=== PATIENT | male | born 1975 | race Caucasian/White ===

== ENCOUNTER 2016-10-11 18:35 | Emergency (ER) | payer OTHER ==
[2016-10-11 19:33] VITALS: BP 139/83
[2016-10-11] MEDS ORDERED: Sulfamethox/Trimethoprim DS 800/160* TAB PO ONE (19:41)
--- NOTE | 2016-10-11 19:49 | UC ---
HPI Wound/Suture Re-check - HPI Summary HPI Summary: Pt is here with concern for possible wound infection. Pt reports that he "cut his leg" ~ 1 week ago on a metal bicycle pedal. Pt is UTD with tetanus. Pt reports that the wound has been getting slightly more tender and mild erythema surrounding wound. Denies fever or chills, or purulent discharge - History Of Current Complaint Chief Complaint: UCSkin Stated Complaint: INFECTED WOUND Time Seen by Provider: 10/11/16 19:29 Hx Obtained From: Patient Onset/Duration: Gradual Onset, Lasting Days, Still Present Severity: Mild - Allergies/Home Medications Allergies/Adverse Reactions: Allergies Allergy/AdvReac Type Severity Reaction Status Date / Time Cephalexin Allergy Hives Verified 10/11/16 19:33 PMH/Surg Hx/FS Hx/Imm Hx Previously Healthy: Yes - Surgical History Surgical History: Yes Surgery Procedure, Year, and Place: EAR TUBES A CHILD,WISDOM TEETH; EYE-PRK PROCEDURE (LASER); vasectomy - Family History Known Family History: Positive: Hypertension - Social History Lives: With Family Alcohol Use: Occasionally Substance Use Type: None Smoking Status (MU): Former Smoker Have You Smoked in the Last Year: No When Did the Patient Quit Smoking/Using Tobacco: 10 yrs+ - Immunization History Most Recent Tetanus Shot: summer 2014 Review of Systems Constitutional: Negative Skin: Other - healing wound, increased erythema, tenderness, posterior left calf Eyes: Negative ENT: Negative Respiratory: Negative Cardiovascular: Negative Gastrointestinal: Negative Genitourinary: Negative Motor: Negative Neurovascular: Negative Musculoskeletal: Negative Neurological: Negative Psychological: Negative All Other Systems Reviewed And Are Negative: Yes Physical Exam Triage Information Reviewed: Yes Appearance: Well-Appearing Vital Signs: Initial Vital Signs Temp 98.2 F 10/11/16 19:29 Pulse 71 10/11/16 19:29 Resp 16 10/11/16 19:29 BP 139/83 10/11/16 19:29 Pulse Ox 100 10/11/16 19:29 Vital Signs Reviewed: Yes Eye Exam: Normal ENT Exam: Normal Neck exam: Normal Respiratory Exam: Normal Cardiovascular Exam: Normal Musculoskeletal Exam: Normal Neurological Exam: Normal Psychological Exam: Normal Skin Exam: Other - healing laceration left medial posterior left calf, ~ 5 cm in length, with mild erythema encompassing wound. Course/Dx - Differential Dx - Laceration/Wound Differential Diagnoses: Cellulitis, Healing Wound Provider Diagnoses: healing wounding. cellulitis Discharge - Discharge Plan Condition: Stable Disposition: HOME Prescriptions: Sulfamethox/Trimethoprim DS* [Bactrim DS 800/160 TAB*] 1 tab PO Q12H #14 tab Patient Education Materials: Wound Infection (ED), Cellulitis (ED) Referrals: Mark Anthony Ontiveros MD [Primary Care Provider] -
== END 2016-10-11 19:50 | disposition home or self-care (01) ==
LOC: UCCORT 18:35
DX: L03.116 Cellulitis of left lower limb (principal); Z88.3 Allergy status to other anti-infective agents; Z87.891 Personal history of nicotine dependence
CPT/HCPCS: 99212; A9270-GY; G0463

== ENCOUNTER 2017-03-31 13:09 | Emergency (ER) | payer OTHER ==
--- OUTSIDE RECORDS SUMMARY | 2017-03-31 16:07 | XMS REPORT ---
:1975 External Reference #:[id number] Author Organization [facility] Address [address] [place] [address] Phone [phone] Care Team Providers Name Role Phone Mark Anthony Ontiveros M.D. Primary Care Physician Unavailable Payers Type Date Identification Numbers Payment Provider Subscriber Commercial Effective: Policy Number: [id number] [facility] Loc 2012 Group Number: [id number] [address] Group Name: [place] [address] PayID: [id number] Problems Date Description Provider Status Onset: 02/28/2016 Body mass index 25-29 - overweight Levi Jones M.D. Active Onset: 12/06/2014 Mild persistent asthma SIM Sampson Active Onset: 08/28/2013 Allergic rhinitis Levi Jones M.D. 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 Active asthmaticus Onset: 01/16/2013 Allergic rhinitis due to pollen Levi Jones M.D. Active Onset: 11/09/2014 Allergic rhinitis due to pollen Allergy Injection Active Onset: 11/09/2014 Allergic rhinitis Allergy Injection Active Onset: 11/09/2014 Allergic rhinitis Allergy Injection Active Onset: 11/09/2014 Allergic rhinitis due to animals Allergy Injection Active Family History Date Family Member(s) Problem(s) Comments General Heart Disease maternal and paternal grandparents General Hypertension maternal and paternal grandparents General Thyroid Disease maternal grandmother Social History Type Date Description Comments Marital Status Legal Status: Lives With Daughters Lives With Spouse Home Environment 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 Home Environment Has a window air conditioner Home Environment Stairs are present Home Environment Unfinished Basement Home Environment The basement is dry Home Environment Cotton 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 Home Environment Mattress is 1 year old Home Environment Regular Mattress Home Environment Mattress is not encased in an allergy proof case Home Environment Pillows are polyester Home Environment Pillows are not encased in an allergy proof case Home Environment Does not use a dehumidifier Home Environment There are no draperies in the home Home Environment The home is jaron Home Environment The floors are carpeted Home Environment The floors are tile Home Environment The floors are wood Home Environment Uses wood heating Home Environment [place] Home Environment Water Source: Well Smoke-Free Home is smoke-free Smoke-Free Work is smoke-free Pets 1 dog Pets Animals sleep in bedroom Occupation [place] ETOH Use Occasionally consumes alcohol Smoking Patient is a former smoker 1 pack per wk for 2-3 yrs 15 yrs ago Recreational Drug Use Denies Drug Use Allergies, Adverse Reactions, Alerts Date Description Reaction Status Severity Comments 01/16/2013 Keflex stomach cramps active 01/16/2013 Indocin stomach cramps active 08/22/2015 Cephalexin active Hives 08/28/2016 Ciprofloxacin active elevated liver bloodwork 08/28/2016 Metronidazole active elevated liver bloodwork Medications Medication Date Status Form Strength Qnty SIG Indications Ordering Provider Flovent HFA 02/14/ Active Aerosol 220mcg/Act 12gm two puffs Joycelyn 2016 twice Uldrich, daily, [employer] rinse mouth after Chela 02/27/ Active Tablets 180mg 30tabs 1 po qd J45.30 Levi Allergy 2013 Yani Jones Ventolin HFA / Active Aerosol 108(90Base 1units 2 puffs Joycelyn 0000 ) mcg/Act q4-6 hours Uldrich, as needed [employer] for shortness of breath, cough, wheezing and/or 15 min. prior to exercise Mometasone / Active Suspension 50mcg/Act 1units 1-2 sprays Joycelyn Furoate 0000 into each Uldrich, nostril [employer] once a day Medications Administered in Office Medication Date Status Form Strength Qnty SIG Indications Ordering Provider Injection 03/01/19 Administered Injection Allergy 18 Injection Injection 02/26/19 Administered Injection Allergy 18 Injection Injection 02/19/19 Administered Injection Allergy 18 Injection Injection 01/23/20 Administered Injection Levi Jones, 17 M.D. Injection 01/23/20 Administered Injection Allergy 17 Injection Injection 12/31/19 Administered Injection Allergy 17 Injection Injection 12/19/19 Administered Injection Levi Jones, 17 M.D. Injection 12/19/19 Administered Injection Allergy 17 Injection Injection 12/05/19 Administered Injection Allergy 17 Injection Injection 11/21/19 Administered Injection Allergy 17 Injection Injection 10/24/19 Administered Injection Levi Jones, 17 M.D. Injection 10/24/19 Administered Injection Allergy 17 Injection Injection 10/10/19 Administered Injection Allergy 17 Injection Injection 09/26/19 Administered Injection Allergy 17 Injection Injection 09/19/19 Administered Injection Allergy 17 Injection Injection 08/29/19 Administered Injection Allergy 17 Injection Injection 08/20/19 Administered Injection Allergy 17 Injection Injection 08/05/19 Administered Injection Allergy 17 Injection Injection 07/25/19 Administered Injection Allergy 17 Injection Injection 07/11/19 Administered Injection Allergy 17 Injection Injection 06/27/19 Administered Injection Levi Jones, 17 M.D. Injection 06/27/19 Administered Injection Allergy 17 Injection Injection 06/09/19 Administered Injection Allergy 17 Injection Injection 06/02/19 Administered Injection Allergy 17 Injection Injection 05/09/19 Administered Injection Allergy 17 Injection Injection 04/25/19 Administered Injection Allergy 17 Injection Injection 04/11/19 Administered Injection Allergy 17 Injection Injection 03/27/19 Administered Injection Allergy 17 Injection Injection 02/27/19 Administered Injection Allergy 17 Injection Injection 02/20/19 Administered Injection Allergy 17 Injection Injection 01/29/20 Administered Injection Allergy 16 Injection Injection 01/22/20 Administered Injection Allergy 16 Injection Injection 01/08/20 Administered Injection Allergy 16 Injection Injection 12/25/19 Administered Injection Allergy 16 Injection Injection 12/11/19 Administered Injection Allergy 16 Injection Injection 11/27/19 Administered Injection Allergy 16 Injection Injection 11/13/19 Administered Injection Allergy 16 Injection Injection 11/01/19 Administered Injection Allergy 16 Injection Injection 10/17/19 Administered Injection Allergy 16 Injection Injection 10/04/19 Administered Injection Allergy 16 Injection Injection 09/20/19 Administered Injection Allergy 16 Injection Injection 09/12/19 Administered Injection Allergy 16 Injection Injection 08/29/19 Administered Injection Allergy 16 Injection Injection 08/22/19 Administered Injection Allergy 16 Injection Injection 08/09/19 Administered Injection Allergy 16 Injection Injection 07/26/19 Administered Injection Allergy 16 Injection Injection 07/12/19 Administered Injection Allergy 16 Injection Injection 06/28/19 Administered Injection Allergy 16 Injection Injection 05 Administered Injection Allergy 16 Injection Injection 05/31/19 Administered Injection Allergy 16 Injection Injection 05/17/19 Administered Injection Allergy 16 Injection Injection 04/26/19 Administered Injection Allergy 16 Injection Injection 04/12/19 Administered Injection Allergy 16 Injection Injection 03/20/19 Administered Injection Allergy 16 Injection Injection 03/06/19 Administered Injection Allergy 16 Injection Injection 02/20/19 Administered Injection Allergy 16 Injection Injection 02/06/20 Administered Injection Allergy 15 Injection Injection 01/24/20 Administered Injection Allergy 15 Injection Injection 01/08/20 Administered Injection Allergy 15 Injection Injection 12/20/19 Administered Injection Allergy 15 Injection Injection 12/07/19 Administered Injection Allergy 15 Injection Injection 11/22/19 Administered Injection Allergy 15 Injection Injection 11/10/19 Administered Injection Allergy 15 Injection Injection 10/25/19 Administered Injection Allergy 15 Injection Injection 10/18/19 Administered Injection Allergy 15 Injection Injection 10/04/19 Administered Injection Allergy 15 Injection Injection 09/20/19 Administered Injection Allergy 15 Injection Injection 09/06/19 Administered Injection Allergy 15 Injection Injection 08/25/19 Administered Injection Allergy 15 Injection Injection 08/16/19 Administered Injection Allergy 15 Injection Injection 08/02/19 Administered Injection Allergy 15 Injection Injection 07/19/19 Administered Injection Allergy 15 Injection Injection 07/05/19 Administered Injection Allergy 15 Injection Injection 06/21/19 Administered Injection Allergy 15 Injection Injection 06/07/19 Administered Injection Allergy 15 Injection Injection 05/24/19 Administered Injection Allergy 15 Injection Injection 05/10/19 Administered Injection Allergy 15 Injection Injection 04/26/19 Administered Injection Allergy 15 Injection Injection 04/12/19 Administered Injection Allergy 15 Injection Injection 03/28/19 Administered Injection Allergy 15 Injection Injection 03/14/19 Administered Injection Allergy 15 Injection Injection 03/02/19 Administered Injection Allergy 15 Injection Injection 02/21/19 Administered Injection Allergy 15 Injection Injection 02/12/19 Administered Injection Allergy 15 Injection Injection 01/30/20 Administered Injection Allergy 14 Injection Injection 01/25/20 Administered Injection Allergy 14 Injection Injection 01/20/20 Administered Injection Allergy 14 Injection Injection 01/11/20 Administered Injection Allergy 14 Injection Injection 11/26/20 Administered Injection Allergy 14 Injection Injection 12/27/20 Administered Injection Allergy 14 Injection Injection 11//20 Administered Injection Allergy 14 Injection Injection 11/05/20 Administered Injection Allergy 14 Injection Injection 12/06/20 Administered Injection Allergy 14 Injection Injection 11/29/20 Administered Injection Allergy 14 Injection Injection 10/15/20 Administered Injection Allergy 14 Injection Injection //20 Administered Injection Allergy 14 Injection Injection 11/06/20 Administered Injection Allergy 14 Injection Injection 10/30/20 Administered Injection Allergy 14 Injection Injection //20 Administered Injection Allergy 14 Injection Injection //20 Administered Injection Allergy 14 Injection Injection 10/06/20 Administered Injection Allergy 14 Injection Injection 10/02/20 Administered Injection Allergy 14 Injection Injection 09/25/20 Administered Injection Allergy 14 Injection Injection 20 Administered Injection Allergy 14 Injection Injection 08//20 Administered Injection Allergy 14 Injection Injection 09/04/20 Administered Injection Allergy 14 Injection Injection 07/20 Administered Injection Allergy 14 Injection Injection 07/20 Administered Injection Allergy 14 Injection Injection 07//20 Administered Injection Allergy 14 Injection Injection 0630/20 Administered Injection Allergy 14 Injection Injection 06/20 Administered Injection Allergy 14 Injection Injection 06/16/20 Administered Injection Allergy 14 Injection Injection 06//20 Administered Injection Allergy 14 Injection Injection 06/02/20 Administered Injection Allergy 14 Injection Injection 05/20 Administered Injection Allergy 14 Injection Injection 05/19/20 Administered Injection Allergy 14 Injection Injection 05/12/20 Administered Injection Allergy 14 Injection Injection 05/05/20 Administered Injection Allergy 14 Injection Injection 0428/20 Administered Injection Allergy 14 Injection Immunizations CPT Code Status Date Vaccine Lot # [id number] Given 11/08/2013 Influenza Vaccine 12839 Given Unknown Pneumococcal Vaccine 93504 Given Unknown Influenza Vaccine 78297 Given Unknown Influenza Vaccine 75999 Given Unknown Influenza Vaccine 53998 Given Unknown Influenza Vaccine Vital Signs Date Vital Result Comment 03/01/2017 Height 74 inches 6'2" Weight 210.00 lb Weight in kg's 95.256 Respiratory Rate 20 /min Heart Rate 73 /min O2 % BldC Oximetry 97 % BP Systolic 136 mmHg BP Diastolic 87 mmHg Asthma Control Test 18 BMI (Body Mass Index) 27.0 kg/m2 08/28/2016 Height 74 inches 6'2" Weight 207.00 lb Weight in kg's 93.895 Respiratory Rate 16 /min Heart Rate 69 /min O2 % BldC Oximetry 97 % BP Systolic 124 mmHg BP Diastolic 85 mmHg Asthma Control Test 22 BMI (Body Mass Index) 26.6 kg/m2 02/28/2016 Height 74 inches 6'2" Weight 230.00 lb Pt verbalized Weight in kg's 104.328 Respiratory Rate 20 /min Heart Rate 85 /min O2 % BldC Oximetry 98 % BP Systolic 123 mmHg BP Diastolic 86 mmHg Asthma Control Test 24 BMI (Body Mass Index) 29.5 kg/m2 08/22/2015 Height 74 inches 6'2" Weight 226.00 lb Weight in kg's 102.514 Respiratory Rate 18 /min Heart Rate 83 /min O2 % BldC Oximetry 98 % BP Systolic 127 mmHg BP Diastolic 79 mmHg Asthma Control Test 24 BMI (Body Mass Index) 29.0 kg/m2 12/06/2014 Height 74 inches 6'2" Weight 227.00 lb Weight in kg's 102.967 Respiratory Rate 16 /min Heart Rate 92 /min O2 % BldC Oximetry 98 % BP Systolic 123 mmHg BP Diastolic 88 mmHg Asthma Control Test 21 BMI (Body Mass Index) 29.1 kg/m2 06/13/2014 Height 74 inches 6'2" Weight 238.00 lb Weight in kg's 107.957 Respiratory Rate 16 /min Heart Rate 79 /min O2 % BldC Oximetry 98 % BP Systolic 140 mmHg BP Diastolic 98 mmHg Asthma Control Test 25 BMI (Body Mass Index) 30.6 kg/m2 12/13/2013 Height 73 inches 6'1" Weight 235.00 lb Weight in kg's 106.596 Respiratory Rate 16 /min Heart Rate 71 /min O2 % BldC Oximetry 98 % BP Systolic 125 mmHg BP Diastolic 80 mmHg Asthma Control Test 25 BMI (Body Mass Index) 31.0 kg/m2 08/28/2013 Height 74 inches 6'2" Weight 234.00 lb Weight in kg's 106.142 Respiratory Rate 16 /min Heart Rate 81 /min O2 % BldC Oximetry 98 % BP Systolic 138 mmHg BP Diastolic 85 mmHg Asthma Control Test 22 BMI (Body Mass Index) 30.0 kg/m2 05/29/2013 Height 74 inches 6'2" Weight 228.00 lb Weight in kg's 103.421 Respiratory Rate 16 /min Heart Rate 86 /min O2 % BldC Oximetry 98 % BP Systolic 138 mmHg BP Diastolic 78 mmHg Asthma Control Test 22 BMI (Body Mass Index) 29.3 kg/m2 02/27/2013 Height 74 inches 6'2" Weight 228.00 lb Weight in kg's 103.421 Respiratory Rate 16 /min Heart Rate 84 /min O2 % BldC Oximetry 98 % BP Systolic 112 mmHg BP Diastolic 68 mmHg BMI (Body Mass Index) 29.3 kg/m2 02/13/2013 Height 74 inches 6'2" Weight 228.00 lb Weight in kg's 103.421 Respiratory Rate 16 /min Heart Rate 72 /min O2 % BldC Oximetry 99 % BP Systolic 132 mmHg BP Diastolic 88 mmHg Asthma Control Test 24 BMI (Body Mass Index) 29.3 kg/m2 01/16/2013 Height 74 inches 6'2" Weight 228.00 lb Weight in kg's 103.421 Respiratory Rate 14 /min Heart Rate 86 /min O2 % BldC Oximetry 98 % BP Systolic 128 mmHg BP Diastolic 74 mmHg BMI (Body Mass Index) 29.3 kg/m2 Results Description No Information Procedures Date CPT Code Description Status 03/01/2017 88012 Extract 1-10 Completed 03/01/2017 13524 Injection Completed 03/01/2017 89013 Pre PFT Completed 02/26/2017 71290 Injection Completed 02/19/2017 70288 Injection Completed 01/22/2017 59195 Injection Completed 01/22/2017 26614 Injection Completed 12/30/2016 93782 Injection Completed 12/18/2016 52563 Injection Completed 12/18/2016 35306 Injection Completed 12/04/2016 98918 Injection Completed 11/20/2016 06127 Injection Completed 10/23/2016 21511 Injection Completed 10/23/2016 58069 Injection Completed 10/09/2016 46518 Injection Completed 09/25/2016 23672 Extract 1-10 Completed 09/25/2016 64779 Injection Completed 09/18/2016 38676 Injection Completed 08/28/2016 54418 Pre PFT Completed 08/28/2016 64657 Pre PFT Completed 08/28/2016 56267 Injection Completed 08/19/2016 23357 Injection Completed 08/04/2016 13741 Injection Completed 07/24/2016 32338 Injection Completed 07/10/2016 61584 Injection Completed 06/26/2016 86510 Injection Completed 06/26/2016 22156 Injection Completed 06/08/2016 17783 Injection Completed 06/01/2016 74528 Injection Completed 05/08/2016 80289 Extract 1-10 Completed 05/08/2016 32481 Injection Completed 04/24/2016 64622 Injection Completed 04/10/2016 87554 Injection Completed 03/27/2016 78931 Injection Completed 02/28/2016 76610 Injection Completed 02/28/2016 93900 Pre PFT Completed 02/21/2016 44267 Injection Completed 01/29/2016 32819 Injection Completed 01/22/2016 73659 Injection Completed 01/08/2016 82783 Injection Completed 12/25/2015 47962 Injection Completed 12/11/2015 72086 Extract 1-10 Completed 12/11/2015 50319 Injection Completed 11/27/2015 99035 Injection Completed 11/13/2015 40641 Injection Completed 11/01/2015 01287 Injection Completed 10/17/2015 57012 Injection Completed 10/04/2015 38835 Injection Completed 09/20/2015 20155 Injection Completed 09/12/2015 67764 Injection Completed 08/29/2015 17916 Injection Completed 08/22/2015 01171 Injection Completed 08/22/2015 60291 Pre PFT Completed 08/09/2015 40598 Injection Completed 08/09/2015 32349 Extract 1-10 Completed 07/26/2015 27942 Injection Completed 07/12/2015 69133 Injection Completed 06/28/2015 46950 Injection Completed 06/14/2015 81249 Injection Completed 05/31/2015 29054 Injection Completed 05/17/2015 32775 Injection Completed 04/26/2015 84165 Injection Completed 04/12/2015 71999 Injection Completed 03/20/2015 04812 Injection Completed 03/06/2015 75687 Extract 1-10 Completed 03/06/2015 07102 Injection Completed 02/20/2015 15868 Injection Completed 02/05/2015 44600 Injection Completed 01/23/2015 01617 Injection Completed 01/07/2015 52955 Injection Completed 12/19/2014 42303 Injection Completed 12/06/2014 85436 Injection Completed 12/06/2014 22118 Pre PFT Completed 11/21/2014 73310 Injection Completed 11/09/2014 25247 Injection Completed 10/24/2014 64782 Injection Completed 10/17/2014 92910 Extract 1-10 Completed 10/17/2014 89490 Injection Completed 10/03/2014 07564 Injection Completed 09/19/2014 14298 Injection Completed 09/05/2014 13832 Injection Completed 08/24/2014 91060 Injection Completed 08/15/2014 80880 Injection Completed 08/01/2014 51330 Injection Completed 07/18/2014 16055 Injection Completed 07/04/2014 50163 Injection Completed 06/20/2014 04219 Injection Completed 06/13/2014 17814 Pre PFT Completed 06/06/2014 89356 Extract 1-10 Completed 06/06/2014 68754 Injection Completed 05/23/2014 21442 Injection Completed 05/09/2014 19264 Injection Completed 04/25/2014 01049 Injection Completed 04/11/2014 69011 Injection Completed 03/28/2014 00657 Injection Completed 03/14/2014 77138 Injection Completed 03/02/2014 74326 Injection Completed 02/21/2014 46171 Injection Completed 02/12/2014 26465 Injection Completed 01/29/2014 18750 Injection Completed 01/29/2014 05136 Extract 1-10 Completed 01/24/2014 35904 Injection Completed 01/19/2014 32065 Injection Completed 01/10/2014 11534 Injection Completed 01/03/2014 86998 Injection Completed 12/27/2013 59459 Injection Completed 12/20/2013 94205 Injection Completed 12/13/2013 39802 Injection Completed 12/13/2013 94902 Pre PFT Completed 12/06/2013 83965 Injection Completed 11/29/2013 38607 Injection Completed 11/22/2013 10428 Extract 1-10 Completed 11/22/2013 37158 Injection Completed 11/15/2013 07890 Injection Completed 11/06/2013 83962 Injection Completed 10/30/2013 99976 Injection Completed 10/23/2013 07329 Injection Completed 10/16/2013 94442 Injection Completed 2013 40669 Injection Completed 10/02/2013 05969 Injection Completed 09/25/2013 96604 Injection Completed 09/18/2013 40298 Injection Completed 09/11/2013 52022 Injection Completed 09/04/2013 98967 Injection Completed 08/28/2013 61348 Injection Completed 08/28/2013 59215 Pre PFT Completed 08/21/2013 41049 Injection Completed 08/14/2013 05319 Injection Completed 08/14/2013 58590 Extract 1-10 Completed 08/07/2013 03886 Injection Completed 07/31/2013 90871 Injection Completed 07/24/2013 74652 Injection Completed 07/17/2013 15257 Injection Completed 07/10/2013 55282 Injection Completed 07/05/2013 10765 Injection Completed 06/26/2013 52985 Injection Completed 06/19/2013 94836 Injection Completed 06/12/2013 54033 Injection Completed 06/05/2013 25356 Injection Completed 06/01/2013 22987 Extract 1-10 Completed 02/27/2013 59538 Skin Tests Id Completed 02/27/2013 34500 Skin Tests Id Completed 02/27/2013 51842 Oxygen Level - Pulse Oximiter Completed 01/16/2013 58796 Skin Test Scratch # Of Units ____ Completed 01/16/2013 71993 Oxygen Level - Pulse Oximiter Completed 01/16/2013 66507 Pulmonary Function Test Completed Encounters Type Date Location Provider CPT E/M Dx Office Visit 03/01/2017 11:40a SIM Nieto 83647 J45.30 J30.1 J30.2 J30.81 J30.89 Office Visit 08/28/2016 11:40a SIM Nieto 38258 J45.30 J30.1 J30.2 J30.81 J30.89 Office Visit 02/28/2016 11:40a Libertad Jones M.D. 17092 J30.89 J45.30 Z68.29 Office Visit 08/22/2015 11:40a SIM Magaña 21748 J45.30 J30.1 J30.81 J30.89 J30.2 Z68.29 Office Visit 12/06/2014 1:40p SIM Magaña 80210 J45.30 J30.1 J30.81 J30.89 J30.2 Z68.29 Office Visit 06/13/2014 1:20p Libertad Ramos, PH.D, RAHAT 24384 477.0 477.8 493.00 V85.30 Office Visit 12/13/2013 1:20p Libertad Ny, MANUELC 75456 477.8 477.0 493.00 Office Visit 08/28/2013 8:40a Libertad Jones M.D. 17225 477.8 493.00 Office Visit 05/29/2013 8:40a Libertad Jones M.D. 86971 477.0 493.00 Office Visit 02/27/2013 11:40a Libertad Jones M.D. 29132 477.0 493.00 Office Visit 01/16/2013 1:20p Libertad Jones M.D. 58616 477.0 493.00 Plan of Care Future Appointment(s):08/30/2017 11:40 am - [facility] at [id number]/2017 12:00 pm - Allergy Injection at Bchbfc3803/01/2017 - ELE Donahue- CJ45.30 Mild persistent asthma, vmlxyrucpavzwX38.1 Allergic rhinitis due to acsbntB07.2 Other seasonal allergic hipfrjgrZ06.81 Allergic rhinitis due to animal (cat) (dog) hair and bmghmtW18.89 Other allergic rhinitisFollow up:6 months with pre PFTRecommendations:Continue all medications as prescribed.Refrain from wearing perfumes/scented colognes while visitingour office. Continue the Flovent 220 mcg 2 puffs twice a day Continue the Chela 1 daily Continue the Ventolin 2 puffs every 4 hours as needed cough, chest tightness, shortness of breath, or wheezing. Monitor Albuterol use. If using more than 2x/week, please call the office as your asthma medications may need to be adjusted. Please call if consistently using rescue inhaler > 2 times per week. Rinse your mouth with water after using your inhaler to help prevent hoarseness, throat irritation, and infection in the mouth.
[2017-03-31 16:19] VITALS: BP 133/74
--- NOTE | 2017-03-31 16:38 | UC ---
Respiratory Complaint HPI - HPI Summary HPI Summary: 41 yo male with about a 8 day hx of cough slight sore throat swollen cervical node fatigue fell winded with minimal expertion severe paroxysm of cough ? fever - History of Current Complaint Chief Complaint: UCRespiratory Stated Complaint: COUGH, CONGESTION Time Seen by Provider: 03/31/17 16:28 Hx Obtained From: Patient Onset/Duration: Sudden Onset, Lasting Days Timing: Constant Severity Initially: Mild Severity Currently: Moderate Pain Intensity: 2 Pain Scale Used: 0-10 Numeric Character: Cough: Nonproductive Aggravating Factors: Exertion Alleviating Factors: Nothing Associated Signs And Symptoms: Positive: Fever - ? - Allergies/Home Medications Allergies/Adverse Reactions: Allergies Allergy/AdvReac Type Severity Reaction Status Date / Time cephalexin [From Keflex] Allergy Hives Verified 03/31/17 16:23 indomethacin [From Indocin] Allergy Unknown Verified 03/31/17 16:23 Reaction Details sulfamethoxazole Allergy Hives Verified 03/31/17 16:23 [From Bactrim] trimethoprim [From Bactrim] Allergy Hives Verified 03/31/17 16:23 Home Medications: Home Medications Fexofenadine/Pseudoephedrine [Chela-D 24 Hour Tablet] 1 each PO DAILY [History Confirmed 03/31/17] PMH/Surg Hx/FS Hx/Imm Hx Previously Healthy: Yes Respiratory History: Asthma - Surgical History Surgical History: Yes Surgery Procedure, Year, and Place: EAR TUBES A CHILD,WISDOM TEETH; EYE-PRK PROCEDURE (LASER); vasectomy - Family History Known Family History: Positive: Hypertension - Social History Alcohol Use: Occasionally Substance Use Type: None Smoking Status (MU): Never Smoked Tobacco Have You Smoked in the Last Year: No When Did the Patient Quit Smoking/Using Tobacco: 10 yrs+ - Immunization History Most Recent Tetanus Shot: summer 2014 Review of Systems Constitutional: Fatigue Skin: Negative Eyes: Negative ENT: Negative Respiratory: Shortness Of Breath - with exertion, Cough Cardiovascular: Negative Gastrointestinal: Negative Genitourinary: Negative Motor: Negative Neurovascular: Negative Musculoskeletal: Negative Neurological: Negative Psychological: Negative Is Patient Immunocompromised?: No All Other Systems Reviewed And Are Negative: Yes Physical Exam Triage Information Reviewed: Yes Appearance: Well-Appearing, No Pain Distress, Well-Nourished Vital Signs: Initial Vital Signs Temp 98.8 F 03/31/17 16:14 Pulse 92 03/31/17 16:14 Resp 16 03/31/17 16:14 BP 133/74 03/31/17 16:14 Pulse Ox 100 03/31/17 16:14 Vital Signs Reviewed: Yes Eyes: Positive: Conjunctiva Clear ENT: Positive: Sinus tenderness. Negative: Nasal congestion, Nasal drainage Neck: Positive: Supple, Nontender, No Lymphadenopathy Respiratory: Positive: Lungs clear, Normal breath sounds, No respiratory distress Cardiovascular: Positive: RRR, No Murmur Musculoskeletal: Positive: ROM Intact, No Edema Neurological: Positive: Alert Psychological Exam: Normal Skin Exam: Normal UC Diagnostic Evaluation - Laboratory O2 Sat by Pulse Oximetry: 100 - normal/not hypoxic - Radiology Xray Interpretation: No Acute Changes Radiology Interpretation Completed By: Radiologist - EKG Cardiac Rate: NL Cardiac Rhythm: Sinus: Normal Ectopy: None ST Segment: Normal Respiratory Course/Dx - Differential Dx/Diagnosis Provider Diagnoses: acute bronchitis Discharge - Discharge Plan Condition: Stable Disposition: HOME Prescriptions: Amoxicillin PO (*) [Amoxicillin 875 MG (*)] 875 mg PO BID #14 tab predniSONE [Deltasone] 40 mg PO DAILY #10 tab Patient Education Materials: Acute Bronchitis (ED) Referrals: Mark Anthony Ontiveros MD [Primary Care Provider] - 5 Days (if not completely better) Additional Instructions: use your inhaler 2 puffs 4x day for 3-5 days
--- NOTE | 2017-03-31 17:04 | RAD ---
INDICATION: Cough COMPARISON: January 11, 2013 TECHNIQUE: PA and lateral dual-energy views were obtained. FINDINGS: Bones/Soft Tissues: There are no acute bony findings. Cardiomediastinal: The cardiomediastinal silhouette is normal. Lungs: There are no infiltrates. Pleura: There are no pleural effusions. Other: None IMPRESSION: NO ACTIVE DISEASE.
== END 2017-03-31 17:47 | disposition home or self-care (01) ==
LOC: UCCORT 13:09
DX: J20.9 Acute bronchitis, unspecified (principal); Z87.891 Personal history of nicotine dependence
CPT/HCPCS: 71046; 93005; 99212; G0463

== ENCOUNTER 2017-09-07 11:13 | Emergency (ER) | payer OTHER ==
[2017-09-07 11:53] VITALS: BP 123/80
--- NOTE | 2017-09-07 12:05 | UC ---
Throat Pain/Nasal Avery HPI - HPI Summary HPI Summary: fatigue x 4 days not feeling well, body aches, no energy had a sore throat 2 weeks ago no fever, no chills, no cough - History of Current Complaint Chief Complaint: UCGeneralIllness Stated Complaint: TIRED/WEAK *5 DAYS Time Seen by Provider: 09/07/17 11:41 Hx Obtained From: Patient Onset/Duration: Gradual Onset, Lasting Days - 4, Still Present Severity: Moderate Pain Intensity: 0 Cough: None Associated Signs & Symptoms: Negative: Dysphagia, FB Sensation, Drooling, Wheezing, Hoarseness, Sinus Discomfort, Nasal Discharge, Fever, Vomiting, Rash - Allergies/Home Medications Allergies/Adverse Reactions: Allergies Allergy/AdvReac Type Severity Reaction Status Date / Time cephalexin [From Keflex] Allergy Hives Verified 09/07/17 11:50 indomethacin [From Indocin] Allergy Eyes Verified 09/07/17 11:50 Itchy/Swollen/Red/Watery sulfamethoxazole Allergy Hives Verified 09/07/17 11:50 [From Bactrim] trimethoprim [From Bactrim] Allergy Hives Verified 09/07/17 11:50 Home Medications: Home Medications Acetaminophen [Tylenol Extra Strength] 1,000 mg PO ONCE PRN 09/07/17 [History Confirmed 09/07/17] Fluticasone HFA 220 mcg(NF) [Flovent HFA 220 Mcg(NF)] 2 puff INH BID 09/07/17 [ History Confirmed 09/07/17] Multivitamins/Minerals TAB* [Theragran/minerals TAB*] 1 tab PO DAILY 09/07/17 [ History Confirmed 09/07/17] PMH/Surg Hx/FS Hx/Imm Hx Cardiovascular History: Cardiac Disease - MVP Respiratory History: Asthma - Surgical History Surgical History: Yes Surgery Procedure, Year, and Place: EAR TUBES A CHILD,WISDOM TEETH; EYE-PRK PROCEDURE (LASER); vasectomy - Family History Known Family History: Positive: Hypertension - Social History Alcohol Use: Occasionally Substance Use Type: None Smoking Status (MU): Never Smoked Tobacco Have You Smoked in the Last Year: No When Did the Patient Quit Smoking/Using Tobacco: 10 yrs+ - Immunization History Most Recent Tetanus Shot: summer 2014 Review of Systems Constitutional: Fatigue Skin: Negative Eyes: Negative ENT: Sore Throat Respiratory: Negative Genitourinary: Negative Motor: Negative Neurovascular: Negative Musculoskeletal: Negative Neurological: Negative Is Patient Immunocompromised?: No All Other Systems Reviewed And Are Negative: Yes Physical Exam Triage Information Reviewed: Yes Appearance: Well-Appearing, No Pain Distress, Well-Nourished Vital Signs: Initial Vital Signs Temp 98.7 F 09/07/17 11:46 Pulse 84 09/07/17 11:46 Resp 14 09/07/17 11:46 BP 123/80 09/07/17 11:46 Pulse Ox 100 09/07/17 11:46 Vital Signs Reviewed: Yes Eyes: Positive: Conjunctiva Clear ENT: Positive: Normal ENT inspection, Hearing grossly normal, Pharynx normal, TMs normal. Negative: Pharyngeal erythema, Nasal congestion, Nasal drainage Neck: Positive: Supple, Nontender, No Lymphadenopathy Respiratory: Positive: Chest non-tender, Lungs clear, Normal breath sounds, No respiratory distress Cardiovascular: Positive: RRR, No Murmur, Pulses Normal Abdominal Exam: Normal Abdomen Description: Positive: Nontender, Soft. Negative: CVA Tenderness (R), CVA Tenderness (L), Distended, Guarding Bowel Sounds: Positive: Present Skin Exam: Normal Throat Pain/Nasal Course/Dx - Differential Dx/Diagnosis Provider Diagnoses: Fatigue Discharge - Sign-Out/Discharge Documenting (check all that apply): Patient Departure - Discharge Plan Condition: Stable Disposition: HOME Patient Education Materials: Fatigue (ED) Referrals: Mark Anthony Ontiveros MD [Primary Care Provider] - 7 Days Additional Instructions: might be due to a viral illness cont. with rest, increase fluid, Tylenol as needed for pain / body aches will check CBC , CMP , TSH , Lyme titer - Billing Disposition and Condition Condition: STABLE Disposition: Home
[2017-09-07 18:57] LABS: ABS Basophils 0.1 10^3/ul (0-0.2); ABS Eosinophils 0.1 10^3/ul (0-0.6); ABS Lymphocytes 1.3 10^3/ul (1.0-4.8); ABS Monocytes 0.6 10^3/ul (0-0.8); ABS Neutrophils 5.1 10^3/ul (1.5-7.7); ABS Nucleated RBC 0 10^3/ul; Eosinophil % 0.7 % (0-6); Hematocrit 43 % (42-52); Hemoglobin 14.7 g/dl (14.0-18.0); Mean Corpuscular HGB Conc 34 g/dl (31-36); Mean Corpuscular Hemoglobin 29 pg (27-31); Mean Corpuscular Volume 86 fL (80-94); Mean Platelet Volume 8.8 um3 (7.4-10.4); Nucleated Red Blood Cells % 0; Platelet Count 269 10^3/ul (150-450); Red Blood Count 5.01 10^6/ul (4.00-5.40); Red Cell Distribution Width 13 % (10.5-15); White Blood Count 7.1 10^3/ul (3.5-10.8)
[2017-09-07 21:45] LABS: EGFR Non-African American 87.4 (>60)
== END 2017-09-07 12:18 | disposition home or self-care (01) ==
LOC: UCCORT 11:13
DX: R53.83 Other fatigue (principal); J45.909 Unspecified asthma, uncomplicated; Z88.1 Allergy status to other antibiotic agents; Z88.2 Allergy status to sulfonamides; Z88.6 Allergy status to analgesic agent
CPT/HCPCS: 36415; 80053; 84443; 85025; 86308; 86618; 99211; G0463

== ENCOUNTER 2017-10-28 08:54 | Emergency (ER) | payer OTHER ==
[2017-10-28 09:03] VITALS: BP 149/93
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
== END 2017-10-28 09:20 | disposition home or self-care (01) ==
LOC: UCEAST 08:54
DX: L03.116 Cellulitis of left lower limb (principal); R03.0 Elevated blood-pressure reading, without diagnosis of hypertension; Z88.1 Allergy status to other antibiotic agents; Z88.2 Allergy status to sulfonamides; Z87.891 Personal history of nicotine dependence
CPT/HCPCS: 99212; G0463